=== PATIENT | female | born 1965 | race Caucasian/White ===

== ENCOUNTER 2017-09-10 15:23 | Emergency (ER) | payer SELFPAY ==
[~2017-09-10] VITALS: Ht 170.2 cm; Wt 83.4 kg
[2017-09-10 15:31] VITALS: BP 139/72; TEMP 97.2
[2017-09-10] MEDS ORDERED: TOUJEO300 U/ML SQ (15:42)
[2017-09-10] MEDS ORDERED: APIDRAVL SQ (15:43)
[2017-09-10] MEDS ORDERED: CAMILA0.35 MG PO (15:44)
[2017-09-10] MEDS ORDERED: PREDNISONE20 MG PO (16:11)
[2017-09-10] MEDS ORDERED: PROVENTIL0.09 MG/A1 IH (16:12)
[2017-09-10 16:29] VITALS: PULSE 100
== END 2017-09-10 16:30 | disposition home or self-care (01) ==
LOC: COL.ER 15:23
DX: J45.901 Unspecified asthma with (acute) exacerbation (principal); E11.9 Type 2 diabetes mellitus without complications; F12.90 Cannabis use, unspecified, uncomplicated; Z87.891 Personal history of nicotine dependence; Z88.1 Allergy status to other antibiotic agents; Z88.8 Allergy status to other drugs, medicaments and biological substances; Z90.49 Acquired absence of other specified parts of digestive tract; Z79.4 Long term (current) use of insulin

== ENCOUNTER 2017-09-19 20:10 | Emergency (ER) | payer SELFPAY ==
[~2017-09-19] VITALS: Ht 170.2 cm; Wt 83.2 kg
[~2017-09-19 20:10] MED LIST: APIDRAVL SQ; CAMILA0.35 MG PO; PREDNISONE20 MG PO; PROVENTIL0.09 MG/A1 IH; TOUJEO300 U/ML SQ
[2017-09-19 20:21] VITALS: BP 175/74; TEMP 98.5
[2017-09-20] MEDS ORDERED: NYSTATIN CREAM15 GM TP (00:30)
[2017-09-20 00:35] VITALS: PULSE 80
== END 2017-09-20 00:36 | disposition home or self-care (01) ==
LOC: COL.ER 20:10
DX: N76.0 Acute vaginitis (principal); L30.4 Erythema intertrigo; E11.9 Type 2 diabetes mellitus without complications; Z79.4 Long term (current) use of insulin; Z98.51 Tubal ligation status; Z90.49 Acquired absence of other specified parts of digestive tract

== ENCOUNTER 2018-01-21 16:56 | Emergency (ER) | payer OTHER ==
[~2018-01-21] VITALS: Ht 170.2 cm; Wt 78.6 kg
[~2018-01-21 16:56] MED LIST changes: +NYSTATIN CREAM15 GM TP
[2018-01-21 17:14] VITALS: TEMP 99.1
[2018-01-21 18:45] VITALS: BP 151/78; PULSE 89
== END 2018-01-21 18:45 | disposition home or self-care (01) ==
LOC: COL.ER 16:56
DX: S40.011A Contusion of right shoulder, initial encounter (principal); S20.229A Contusion of unspecified back wall of thorax, initial encounter; S80.01XA Contusion of right knee, initial encounter; S90.01XA Contusion of right ankle, initial encounter; E11.9 Type 2 diabetes mellitus without complications; Z79.4 Long term (current) use of insulin; V43.52XA Car driver injured in collision with other type car in traffic accident, initial encounter

== ENCOUNTER 2018-06-19 13:44 | Emergency (ER) | payer OTHER ==
[~2018-06-19] VITALS: Ht 170.2 cm; Wt 80.5 kg
[2018-06-19 13:57] VITALS: TEMP 98.7
[2018-06-19 15:06] LABS: BASO % 0.4 % (0.0-2.0); EOS # 0.1 (0.0-0.7); EOS % 1.1 % (0-4.0); GRAN % 69.9 % (42.2-75.2); HEMOGLOBIN 10.4 g/dl (12.5-16.0); LYMPH # 1.7 (1.2-3.4); LYMPH % 23.2 % (20.0-51.0); MEAN CELL VOLUME 82 fl (80.0-100.0); MEAN CORPUSCULAR HEMOGLOBIN 28 pg (27.0-31.0); MEAN CORPUSCULAR HGB CONC 34 g/dl (33.0-37.0); MEAN PLATELET VOLUME 9.5 fl (7.4-10.4); MONO # 0.4 (0.1-0.6); MONO % 5.1 % (1.7-9.3); PLATELET COUNT 263 K/mm3 (130-400); RED BLOOD COUNT 3.76 M/mm3 (4.10-5.30); REDCELL DISTRIBUTION WIDTH-CV 23.7 % (11.5-14.5)
[2018-06-19 15:12] LABS: CALCIUM 8.8 mg/dL (8.4-10.2); CREATININE, serum 0.42 mg/dL (0.52-1.25); POTASSIUM 4.2 mmol/L (3.4-5.0)
[2018-06-19 15:14] LABS: HEMATOCRIT 30.7 % (37.0-47.0)
[2018-06-19 18:07] VITALS: BP 129/67; PULSE 110
== END 2018-06-19 18:11 | disposition home or self-care (01) ==
LOC: COL.ER 13:44
PROVIDERS: Physician Assistant
DX: N93.8 Other specified abnormal uterine and vaginal bleeding (principal); J45.909 Unspecified asthma, uncomplicated; D64.9 Anemia, unspecified; E11.9 Type 2 diabetes mellitus without complications; Z79.4 Long term (current) use of insulin; Z87.42 Personal history of other diseases of the female genital tract; Z90.49 Acquired absence of other specified parts of digestive tract; Z98.51 Tubal ligation status; Z87.891 Personal history of nicotine dependence
CPT/HCPCS: J7030

== ENCOUNTER → 2018-08-27 | Outpatient (CLI) | payer OTHER | LOC: COL.RAD 11:12 | DX: R10.9 Unspecified abdominal pain (principal); Z90.710 Acquired absence of both cervix and uterus ==

== ENCOUNTER → 2018-09-26 | Outpatient (CLI) | payer OTHER | LOC: COL.RAD 11:11 | DX: R10.31 Right lower quadrant pain (principal); Z90.49 Acquired absence of other specified parts of digestive tract | CPT/HCPCS: Q9967 ==

== ENCOUNTER 2018-10-01 16:42 | Emergency (ER) | payer OTHER ==
[~2018-10-01] VITALS: Ht 170.2 cm; Wt 75.9 kg
[2018-10-01 16:50] VITALS: BP 137/70; TEMP 98.6
[2018-10-01 17:43] LABS: BASO % 0.4 % (0.0-2.0); EOS # 0.1 (0.0-0.7); EOS % 1.6 % (0-4.0); GRAN # 3.5 (1.4-6.5); GRAN % 63.2 % (42.2-75.2); LYMPH # 1.6 (1.2-3.4); LYMPH % 28.1 % (20.0-51.0); MEAN CELL VOLUME 68 fl (80.0-100.0); MEAN CORPUSCULAR HGB CONC 29 g/dl (33.0-37.0); MEAN PLATELET VOLUME 9.3 fl (7.4-10.4); MONO # 0.4 (0.1-0.6); MONO % 6.3 % (1.7-9.3); PLATELET COUNT 290 K/mm3 (130-400); RED BLOOD COUNT 4.64 M/mm3 (4.10-5.30); REDCELL DISTRIBUTION WIDTH-CV 17.2 % (11.5-14.5)
[2018-10-01 17:44] LABS: HEMATOCRIT 31.6 % (37.0-47.0); HEMOGLOBIN 9.3 g/dl (12.5-16.0); MEAN CORPUSCULAR HEMOGLOBIN 20 pg (27.0-31.0)
[2018-10-01 17:51] LABS: ALANINE AMINOTRANSFERASE < 6 U/L (9-52); ALBUMIN 4.2 gm/dL (3.5-5.0); ALKALINE PHOSPHATASE 90 U/L (50-136); ANION GAP 13 mmol/L (7-16); AST,SGOT 18 U/L (15-37); BILIRUBIN,TOTAL 0.3 mg/dL (0.0-1.0); BLOOD UREA NITROGEN 13 mg/dL (7-17); CALCIUM 9.3 mg/dL (8.4-10.2); CARBON DIOXIDE 24 mmol/L (22-30); CHLORIDE 103 mmol/L (98-107); CREATININE, serum 0.51 (0.52-1.25); GLUCOSE 185 mg/dL (74-106); LIPASE 128 U/L (23-300); POTASSIUM 4.1 mmol/L (3.4-5.0); SODIUM 140 mmol/L (137-145); TOTAL PROTEIN 8.2 gm/dL (6.4-8.2)
[2018-10-01 17:52] LABS: C-REACTIVE PROTEIN 0.5 mg/dL (0.0-0.9)
[2018-10-01 17:56] LABS: COLLECTION METHOD CLEAN CATCH
[2018-10-01 18:01] LABS: PH 7 (5-8); SQUAMOUS EPITHELIAL 0-2 /hpf; URINE APPEARANCE Hazy; URINE BACTERIA None Seen /hpf; URINE BILIRUBIN Negative (NEGATIVE); URINE BLOOD Negative (NEGATIVE); URINE COLOR Yellow; URINE GLUCOSE 1+ (NEGATIVE); URINE KETONE Negative (NEGATIVE); URINE LEUKOCYTE ESTERASE Negative (NEGATIVE); URINE NITRATE Negative (NEGATIVE); URINE PROTEIN(semi-quant) Negative (NEGATIVE); URINE RBC None Seen /hpf; URINE UROBILINOGEN Negative (NEGATIVE)
[2018-10-01] MEDS ORDERED: ZOFRAN ODT4 MG PO (18:26)
[2018-10-01 19:11] VITALS: PULSE 98
== END 2018-10-01 19:14 | disposition home or self-care (01) ==
LOC: COL.ER 16:42
PROVIDERS: Physician Assistant
DX: R10.12 Left upper quadrant pain (principal); R11.0 Nausea; E11.9 Type 2 diabetes mellitus without complications; Z79.4 Long term (current) use of insulin; Z90.49 Acquired absence of other specified parts of digestive tract; Z90.710 Acquired absence of both cervix and uterus; Z98.51 Tubal ligation status
CPT/HCPCS: J1885; J2405; J7030

== ENCOUNTER 2019-02-02 13:42 | Emergency (ER) | payer BC ==
[~2019-02-02] VITALS: Ht 170.2 cm; Wt 73.6 kg
[~2019-02-02 13:42] MED LIST changes: +ZOFRAN ODT4 MG PO
[2019-02-02 13:46] VITALS: TEMP 98.1
[2019-02-02] MEDS ORDERED: JARDIANCE10 PO (14:05)
[2019-02-02] MEDS ORDERED: TOUJEO300 U/ML SQ (14:06)
[2019-02-02] MEDS ORDERED: OZEMPIC1 MG/0.75 SQ (14:11)
[2019-02-02] MEDS ORDERED: PRINIVIL5 MG PO (14:11)
[2019-02-02 14:43] LABS: COLLECTION METHOD CLEAN CATCH
[2019-02-02 14:48] LABS: BASO % 0.3 % (0.0-2.0); EOS # 0.1 (0.0-0.7); GRAN # 3.9 (1.4-6.5); GRAN % 66.1 % (42.2-75.2); HEMATOCRIT 34.8 % (37.0-47.0); HEMOGLOBIN 10.9 g/dl (12.5-16.0); LYMPH # 1.6 (1.2-3.4); LYMPH % 26.2 % (20.0-51.0); MEAN CELL VOLUME 74 fl (80.0-100.0); MEAN CORPUSCULAR HEMOGLOBIN 23 pg (27.0-31.0); MEAN CORPUSCULAR HGB CONC 31 g/dl (33.0-37.0); MEAN PLATELET VOLUME 9.8 fl (7.4-10.4); MONO # 0.4 (0.1-0.6); MONO % 6.1 % (1.7-9.3); PLATELET COUNT 249 K/mm3 (130-400); RED BLOOD COUNT 4.71 M/mm3 (4.10-5.30); REDCELL DISTRIBUTION WIDTH-CV 16.6 % (11.5-14.5)
[2019-02-02 14:50] LABS: PH 6 (5-8); SQUAMOUS EPITHELIAL None Seen /hpf; URINE APPEARANCE Turbid; URINE BACTERIA None Seen /hpf; URINE BILIRUBIN Negative (NEGATIVE); URINE BLOOD 1+ (NEGATIVE); URINE COLOR Amber; URINE GLUCOSE 3+ (NEGATIVE); URINE KETONE Negative (NEGATIVE); URINE LEUKOCYTE ESTERASE Negative (NEGATIVE); URINE NITRATE Negative (NEGATIVE); URINE PROTEIN(semi-quant) Negative (NEGATIVE); URINE RBC 0-2 /hpf; URINE UROBILINOGEN Negative (NEGATIVE)
[2019-02-02 15:12] LABS: ALANINE AMINOTRANSFERASE < 6 U/L (9-52); ALBUMIN 4.1 gm/dL (3.5-5.0); ALKALINE PHOSPHATASE 88 U/L (50-136); ANION GAP 8 mmol/L (7-16); AST,SGOT 16 U/L (15-37); BILIRUBIN,TOTAL 0.1 mg/dL (0.0-1.0); BLOOD UREA NITROGEN 12 mg/dL (7-17); CALCIUM 8.8 mg/dL (8.4-10.2); CARBON DIOXIDE 26 mmol/L (22-30); CHLORIDE 105 mmol/L (98-107); GLUCOSE 133 mg/dL (74-106); SODIUM 139 mmol/L (137-145); TOTAL PROTEIN 7.6 gm/dL (6.4-8.2)
[2019-02-02 15:14] LABS: C-REACTIVE PROTEIN 0.5 mg/dL (0.0-0.9)
[2019-02-02 17:12] VITALS: BP 145/82; PULSE 99
== END 2019-02-02 17:12 | disposition home or self-care (01) ==
LOC: COL.ER 13:42
PROVIDERS: Physician Assistant
DX: K59.00 Constipation, unspecified (principal); E11.9 Type 2 diabetes mellitus without complications; Z79.4 Long term (current) use of insulin; Z90.710 Acquired absence of both cervix and uterus; Z98.51 Tubal ligation status; Z90.89 Acquired absence of other organs; Z88.1 Allergy status to other antibiotic agents; Z88.8 Allergy status to other drugs, medicaments and biological substances
CPT/HCPCS: J1885; J7030; Q9967

== ENCOUNTER → 2019-03-31 | Outpatient (CLI) | payer BC ==
[~2019-03-31] MED LIST changes: +CLEOCIN HCL300 MG PO; +ELIQUIS 5MG PO; +JARDIANCE25 PO; +OZEMPIC1 MG/0.75 SQ; +PRINIVIL5 MG PO; +ZANTAC 150MG T150 MG PO
[2019-03-31 18:53] LABS: TROPONIN-I < 0.012 ng/mL (0.000-0.035)
== END ==
LOC: ZCOL.LAB 17:17
PROVIDERS: Internal Medicine Interventional Cardiology
DX: I48.92 Unspecified atrial flutter (principal); I20.8 Other forms of angina pectoris

== ENCOUNTER 2019-04-02 12:38 | Day surgery (SDC) | payer BC ==
[~2019-04-02] VITALS: Ht 170.2 cm; Wt 69.8 kg
[~2019-04-02 12:38] MED LIST changes: -CLEOCIN HCL300 MG PO; -ELIQUIS 5MG PO; -ZANTAC 150MG T150 MG PO
[2019-04-02] MEDS ORDERED: ELIQUIS 5MG PO (13:05)
[2019-04-02] MEDS ORDERED: ZANTAC 150MG T150 MG PO (13:05)
[2019-04-02 13:06] VITALS: BP 148/90; PULSE 95; TEMP 37.1
[2019-04-02] MEDS ORDERED: CLEOCIN HCL300 MG PO (13:06)
--- NOTE | 2019-04-02 14:14 | NUR ---
Initial Visit; Patient and her friend thanked [employer] for offering encouragement and prayer prior to her surgical procedure.
[2019-04-02 15:14] LABS: INR 1.2 (0.8-3.0)
[2019-04-02 15:25] LABS: THYROID STIMULATING HORMONE 0.812 uIU/mL (0.465-4.680)
[2019-04-02 15:40] VITALS: BP 145/73; PULSE 105
--- NOTE | 2019-04-02 16:30 | NUR ---
Pt is ready for departure. Pt did not end up having a CONRADO today as Dr. Goldstein decided she was in sinus rhythm. At [address] Goldstein to let him know that the EKG appeared to be SR rate 100's and asking for his interpretation of EKG. At that time the plan was to perform CONRADO as it was not possible at that time to totally rule out flutter. However, it was later decided to not perform CONRADO and to send pt home on Holter monitor for 24 hours. 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 Pt did not receive any sedation. pt's 20g saline lock to rac was dc'd after plan for discharge was established, cath intact, dressing applied. RT applied holter monitor and gave pt instructions about how to record her diary, and where to bring holter after 24 hour perior was over. written instructions regarding holter monitor and f/u/med instructions were reviewed with patient who verbalized understanding. She was ambulatory to exit with her and friends.
== END 2019-04-02 17:00 | disposition home or self-care (01) ==
LOC: COL.CAR 12:38
PROVIDERS: Internal Medicine Interventional Cardiology
DX: I48.92 Unspecified atrial flutter (principal); I20.8 Other forms of angina pectoris; E11.9 Type 2 diabetes mellitus without complications; Z91.018 Allergy to other foods; Z88.1 Allergy status to other antibiotic agents; Z88.8 Allergy status to other drugs, medicaments and biological substances; Z91.048 Other nonmedicinal substance allergy status; Z90.49 Acquired absence of other specified parts of digestive tract; Z90.710 Acquired absence of both cervix and uterus; Z83.3 Family history of diabetes mellitus; Z87.891 Personal history of nicotine dependence

== ENCOUNTER 2019-04-11 19:29 | Emergency (ER) | payer BC ==
[~2019-04-11] VITALS: Ht 170.2 cm; Wt 69.5 kg
[~2019-04-11 19:29] MED LIST changes: +CLEOCIN HCL300 MG PO; +ELIQUIS 5MG PO; +ZANTAC 150MG T150 MG PO
[2019-04-11 19:39] VITALS: TEMP 98.8
[2019-04-11 20:33] LABS: BASO % 0.4 % (0.0-2.0); EOS # 0.1 (0.0-0.7); EOS % 0.9 % (0-4.0); GRAN # 4.3 (1.4-6.5); GRAN % 63.5 % (42.2-75.2); HEMOGLOBIN 12.1 g/dl (12.5-16.0); LYMPH % 28.8 % (20.0-51.0); MEAN CELL VOLUME 76 fl (80.0-100.0); MEAN CORPUSCULAR HEMOGLOBIN 24 pg (27.0-31.0); MEAN CORPUSCULAR HGB CONC 32 g/dl (33.0-37.0); MEAN PLATELET VOLUME 9.9 fl (7.4-10.4); MONO # 0.4 (0.1-0.6); MONO % 6.3 % (1.7-9.3); PLATELET COUNT 330 K/mm3 (130-400); RED BLOOD COUNT 5.01 M/mm3 (4.10-5.30); REDCELL DISTRIBUTION WIDTH-CV 15.1 % (11.5-14.5)
[2019-04-11 20:34] LABS: ALANINE AMINOTRANSFERASE 9 U/L (9-52); ALBUMIN 4.2 gm/dL (3.5-5.0); ALKALINE PHOSPHATASE 106 U/L (50-136); ANION GAP 10 mmol/L (7-16); AST,SGOT 12 U/L (15-37); BILIRUBIN,TOTAL 0.2 mg/dL (0.0-1.0); BLOOD UREA NITROGEN 15 mg/dL (7-17); CARBON DIOXIDE 26 mmol/L (22-30); CHLORIDE 103 mmol/L (98-107); CREATININE, serum 0.73 (0.52-1.25); GLUCOSE 275 mg/dL (74-106); LIPASE 163 U/L (23-300); POTASSIUM 3.9 mmol/L (3.4-5.0); SODIUM 139 mmol/L (137-145); TOTAL PROTEIN 7.6 gm/dL (6.4-8.2)
[2019-04-11 20:37] LABS: C-REACTIVE PROTEIN < 0.5 mg/dL (0.0-0.9)
[2019-04-11 20:43] LABS: TROPONIN-I < 0.012 ng/mL (0.000-0.035)
[2019-04-11 21:33] LABS: COLLECTION METHOD CLEAN CATCH
[2019-04-11 21:47] LABS: PH 7 (5-8); SQUAMOUS EPITHELIAL 0-2 /hpf; URINE APPEARANCE Clear; URINE BACTERIA None Seen /hpf; URINE BILIRUBIN Negative (NEGATIVE); URINE BLOOD Negative (NEGATIVE); URINE COLOR Straw; URINE GLUCOSE 3+ (NEGATIVE); URINE KETONE Negative (NEGATIVE); URINE LEUKOCYTE ESTERASE Negative (NEGATIVE); URINE NITRATE Negative (NEGATIVE); URINE PROTEIN(semi-quant) Negative (NEGATIVE); URINE RBC 0-2 /hpf; URINE UROBILINOGEN Negative (NEGATIVE)
[2019-04-11 22:45] VITALS: BP 142/80; PULSE 103
== END 2019-04-11 22:52 | disposition home or self-care (01) ==
LOC: COL.ER 19:29
PROVIDERS: Emergency Medicine
DX: E11.65 Type 2 diabetes mellitus with hyperglycemia (principal); R07.9 Chest pain, unspecified; R10.11 Right upper quadrant pain; I48.91 Unspecified atrial fibrillation; Z79.4 Long term (current) use of insulin; Z90.49 Acquired absence of other specified parts of digestive tract; Z90.710 Acquired absence of both cervix and uterus
CPT/HCPCS: J1170; J1815; J2405; J7030

== ENCOUNTER 2019-04-19 17:28 | Emergency (ER) | payer BC ==
[~2019-04-19] VITALS: Ht 170.2 cm; Wt 69.5 kg
[2019-04-19 17:53] VITALS: TEMP 98.8
[2019-04-19] MEDS ORDERED: ELIQUIS 5MG PO (18:12)
[2019-04-19 18:49] LABS: COLLECTION METHOD CLEAN CATCH
[2019-04-19 18:56] LABS: PH 5 (5-8); SQUAMOUS EPITHELIAL None Seen /hpf; URINE APPEARANCE Clear; URINE BACTERIA None Seen /hpf; URINE BILIRUBIN Negative (NEGATIVE); URINE BLOOD Negative (NEGATIVE); URINE COLOR Straw; URINE GLUCOSE 3+ (NEGATIVE); URINE KETONE Negative (NEGATIVE); URINE LEUKOCYTE ESTERASE Negative (NEGATIVE); URINE NITRATE Negative (NEGATIVE); URINE PROTEIN(semi-quant) Negative (NEGATIVE); URINE RBC 0-2 /hpf; URINE UROBILINOGEN Negative (NEGATIVE)
[2019-04-19 19:17] LABS: TRICYCLIC ANTIDEPRESS URINE NEGATIVE
[2019-04-19 19:23] LABS: ALANINE AMINOTRANSFERASE 6 U/L (9-52); ALBUMIN 4.6 gm/dL (3.5-5.0); ALKALINE PHOSPHATASE 117 U/L (50-136); ANION GAP 12 mmol/L (7-16); AST,SGOT 15 U/L (15-37); BILIRUBIN,TOTAL 0.2 mg/dL (0.0-1.0); BLOOD UREA NITROGEN 14 mg/dL (7-17); CALCIUM 9.4 mg/dL (8.4-10.2); CARBON DIOXIDE 23 mmol/L (22-30); CHLORIDE 103 mmol/L (98-107); GLUCOSE 297 mg/dL (74-106); LIPASE 167 U/L (23-300); POTASSIUM 4.1 mmol/L (3.4-5.0); SODIUM 138 mmol/L (137-145); TOTAL PROTEIN 8.4 gm/dL (6.4-8.2)
[2019-04-19 19:25] LABS: BASO % 0.4 % (0.0-2.0); C-REACTIVE PROTEIN < 0.5 mg/dL (0.0-0.9); EOS # 0.1 (0.0-0.7); EOS % 1.3 % (0-4.0); GRAN # 5.4 (1.4-6.5); GRAN % 68.9 % (42.2-75.2); HEMATOCRIT 39.9 % (37.0-47.0); HEMOGLOBIN 12.7 g/dl (12.5-16.0); LYMPH # 1.8 (1.2-3.4); MEAN CELL VOLUME 76 fl (80.0-100.0); MEAN CORPUSCULAR HEMOGLOBIN 24 pg (27.0-31.0); MEAN CORPUSCULAR HGB CONC 32 g/dl (33.0-37.0); MEAN PLATELET VOLUME 9.7 fl (7.4-10.4); MONO # 0.5 (0.1-0.6); MONO % 6.1 % (1.7-9.3); PLATELET COUNT 319 K/mm3 (130-400); RED BLOOD COUNT 5.26 M/mm3 (4.10-5.30); REDCELL DISTRIBUTION WIDTH-CV 14.7 % (11.5-14.5)
[2019-04-19 20:30] VITALS: BP 164/91
[2019-04-19 20:53] VITALS: PULSE 105
== END 2019-04-19 20:50 | disposition home or self-care (01) ==
LOC: COL.ER 17:28
PROVIDERS: Emergency Medicine
DX: R10.11 Right upper quadrant pain (principal); Z90.710 Acquired absence of both cervix and uterus; Z79.4 Long term (current) use of insulin; Z90.89 Acquired absence of other organs
CPT/HCPCS: J0780; J1885; J7030

== ENCOUNTER → 2019-06-10 | Outpatient (CLI) | payer BC | LOC: MC.RAD 15:16 | DX: Z12.31 Encounter for screening mammogram for malignant neoplasm of breast (principal) ==

== ENCOUNTER 2020-01-25 18:44 | Emergency (ER) | payer BC ==
[~2020-01-25] VITALS: Ht 170.2 cm; Wt 80.0 kg
[2020-01-25 18:52] VITALS: BP 139/69; TEMP 98.2
[2020-01-25 19:23] LABS: BASO % 0.3 % (0.0-2.0); EOS # 0.1 (0.0-0.7); EOS % 1.4 % (0-4.0); GRAN % 69.1 % (42.2-75.2); HEMATOCRIT 37.9 % (37.0-47.0); HEMOGLOBIN 12.6 g/dl (12.5-16.0); LYMPH # 1.6 (1.2-3.4); LYMPH % 22.4 % (20.0-51.0); MEAN CELL VOLUME 81 fl (80.0-100.0); MEAN CORPUSCULAR HEMOGLOBIN 27 pg (27.0-31.0); MEAN CORPUSCULAR HGB CONC 33 g/dl (33.0-37.0); MEAN PLATELET VOLUME 10.1 fl (7.4-10.4); MONO # 0.5 (0.1-0.6); MONO % 6.5 % (1.7-9.3); PLATELET COUNT 230 K/mm3 (130-400); RED BLOOD COUNT 4.71 M/mm3 (4.10-5.30)
[2020-01-25 19:37] LABS: ALBUMIN 4.3 gm/dL (3.5-5.0); BILIRUBIN,TOTAL 0.3 mg/dL (0.0-1.0); CALCIUM 9.1 mg/dL (8.4-10.2); CREATININE, serum 0.69 (0.52-1.25); POTASSIUM 3.8 mmol/L (3.4-5.0); TOTAL PROTEIN 7.6 gm/dL (6.4-8.2)
[2020-01-25 20:37] VITALS: PULSE 90
== END 2020-01-25 20:35 | disposition home or self-care (01) ==
LOC: COL.ER 18:44
PROVIDERS: Emergency Medicine
DX: S80.02XA Contusion of left knee, initial encounter (principal); S30.1XXA Contusion of abdominal wall, initial encounter; I48.91 Unspecified atrial fibrillation; Z86.79 Personal history of other diseases of the circulatory system; Z87.891 Personal history of nicotine dependence; Z88.8 Allergy status to other drugs, medicaments and biological substances; Z79.01 Long term (current) use of anticoagulants; Z79.84 Long term (current) use of oral hypoglycemic drugs; W13.3XXA Fall through floor, initial encounter; Y92.009 Unspecified place in unspecified non-institutional (private) residence as the place of occurrence of the external cause
CPT/HCPCS: J2405; J3010; J7030; Q9967

== ENCOUNTER 2020-06-05 18:49 | Emergency (ER) | payer BC ==
[~2020-06-05] VITALS: Ht 170.2 cm; Wt 80.9 kg
[2020-06-05 18:59] VITALS: TEMP 98.1
[2020-06-05 21:44] VITALS: BP 124/70; PULSE 78
== END 2020-06-05 21:44 | disposition home or self-care (01) ==
LOC: COL.ER 18:49
DX: S62.317A Displaced fracture of base of fifth metacarpal bone, left hand, initial encounter for closed fracture (principal); E08.8 Diabetes mellitus due to underlying condition with unspecified complications; H35.30 Unspecified macular degeneration; Z79.4 Long term (current) use of insulin; Z88.1 Allergy status to other antibiotic agents; Z88.8 Allergy status to other drugs, medicaments and biological substances; Z79.01 Long term (current) use of anticoagulants; W01.0XXA Fall on same level from slipping, tripping and stumbling without subsequent striking against object, initial encounter

== ENCOUNTER → 2020-07-11 | Outpatient (CLI) | payer BC ==
[~2020-07-11] MED LIST changes: +BACTRIM DS 8001 TAB PO
== END ==
LOC: MC.RAD 14:45
DX: Z12.31 Encounter for screening mammogram for malignant neoplasm of breast (principal); N64.89 Other specified disorders of breast

== ENCOUNTER → 2020-07-19 | Outpatient (CLI) | payer BC | LOC: MC.RAD 12:59 | DX: N64.89 Other specified disorders of breast (principal) ==

== ENCOUNTER 2020-09-10 22:26 | Emergency (ER) | payer BC ==
[~2020-09-10] VITALS: Ht 170.2 cm; Wt 82.3 kg
[~2020-09-10 22:26] MED LIST changes: -BACTRIM DS 8001 TAB PO
[2020-09-10 22:45] VITALS: TEMP 97.6
[2020-09-11] MEDS ORDERED: BACTRIM DS 8001 TAB PO (01:18)
[2020-09-11 02:11] VITALS: BP 117/81; PULSE 63
== END 2020-09-11 02:13 | disposition home or self-care (01) ==
LOC: COL.ER 22:26
DX: L01.00 Impetigo, unspecified (principal)

== ENCOUNTER → 2021-08-08 | Outpatient (CLI) | payer BC ==
[~2021-08-08] MED LIST changes: +BACTRIM DS 8001 TAB PO
== END ==
LOC: MC.RAD 14:01
DX: Z12.31 Encounter for screening mammogram for malignant neoplasm of breast (principal)

== ENCOUNTER 2022-08-10 17:58 | Emergency (ER) | payer BC ==
[~2022-08-10] VITALS: Ht 170.2 cm; Wt 83.6 kg
[2022-08-10 18:28] VITALS: BP 109/65; TEMP 98.3
[2022-08-10 18:55] VITALS: PULSE 76
[2022-08-10] MEDS ORDERED: NORCO 325 MG-51 TAB PO ×3 (20:03→20:09)
[2022-08-10] MEDS ORDERED: BACTRIM DS 8001 TAB PO (20:08)
== END 2022-08-10 20:28 | disposition home or self-care (01) ==
LOC: COL.ER 17:58
DX: S62.346A Nondisplaced fracture of base of fifth metacarpal bone, right hand, initial encounter for closed fracture (principal); S40.011A Contusion of right shoulder, initial encounter; S00.81XA Abrasion of other part of head, initial encounter; S60.511A Abrasion of right hand, initial encounter; S00.511A Abrasion of lip, initial encounter; Z87.81 Personal history of (healed) traumatic fracture; Z88.1 Allergy status to other antibiotic agents; Z28.310 Unvaccinated for COVID-19; W54.1XXA Struck by dog, initial encounter; W18.30XA Fall on same level, unspecified, initial encounter; Y92.009 Unspecified place in unspecified non-institutional (private) residence as the place of occurrence of the external cause